=== PATIENT | male | born 1985 | race Caucasian/White ===

== ENCOUNTER 2023-02-12 11:34 | Emergency (ER) | payer BC ==
--- NOTE | 2023-02-12 12:13 | EDPHYS ---
Physician Documentation [facility] Name: Harrison Pedroza Age: 37 yrs Sex: Male : 1985 Arrival Date: 02/12/2023 Time: 11:34 Bed 14 Private MD: ED Physician Tru Davalos HPI: 02/12 12:08 This 37 yrs old Male presents to ER via Ambulatory with complaints of Foot Injury. sp3 12:08 37-year-old male with no past medical history presents with right plantar pain sp3 secondary to stepping on an oyster bed. Multiple superficial lacerations are present. No other injuries. No significant bleeding, foreign body sensation, proximal injury, injury other than the plantar surface review of systems otherwise negative.. Historical: - Allergies: 11:56 No Known Allergies; iw - Home Meds: 11:56 None [Active]; iw - PMHx: 11:56 None; iw - Immunization history:: Last tetanus immunization: < 5 years ago. - Social history:: Smoking status: Patient denies any tobacco usage or history of. ROS: 12:10 Constitutional: Negative for fever, chills, and weight loss, Eyes: Negative for injury, sp3 pain, redness, and discharge, ENT: Negative for injury, pain, and discharge, Neck: Negative for injury, pain, and swelling, Cardiovascular: Negative for chest pain, palpitations, and edema, Respiratory: Negative for shortness of breath, cough, wheezing, and pleuritic chest pain, Abdomen/GI: Negative for abdominal pain, nausea, vomiting, diarrhea, and constipation, Back: Negative for injury and pain, Skin: Negative for injury, rash, and discoloration, Neuro: Negative for headache, weakness, numbness, tingling, and seizure, Psych: Negative for depression, anxiety, suicide ideation, homicidal ideation, and hallucinations, Allergy/Immunology: Negative for hives, rash, and allergies, Endocrine: Negative for neck swelling, polydipsia, polyuria, polyphagia, and marked weight changes. 12:10 All other systems are negative. Exam: 12:10 Constitutional: This is a well developed, well nourished patient who is awake, alert, sp3 and in no acute distress. Neuro: Awake and alert, GCS 15, oriented to person, place, time, and situation. Cranial nerves II-XII grossly intact. Motor strength 5/5 in all extremities. Sensory grossly intact. Cerebellar exam normal. Normal gait. 12:10 Musculoskeletal/extremity: Multiple superficial plantar lacerations none greater than 1 cm are present. Approximately 4-5 are the 1 cm length the remainder are extremely superficial and shorter than that. No significant bleeding noted. No foreign body palpated. No significant bleeding noted. Dorsalis pedis pulses normal and no proximal injury whatsoever.. Vital Signs: 11:55 BP 111 / 57; Pulse 59; Resp 16; Temp 98.1; Pulse Ox 98% on R/A; Weight 68.04 kg; Height iw 5 ft. 6 in. ; 12:17 BP 120 / 96; Pulse 57; Resp 17; Pulse Ox 100% on R/A; me1 11:55 Body Mass Index 24.21 (68.04 kg, 167.64 cm) iw MDM: 12:01 Patient medically screened. sp3 12:11 Data reviewed: vital signs, nurses notes. ED course: 37-year-old male with right sp3 plantar foot injury secondary to oyster bed. Although technically not a marine envenomation, we will still place patient on Levaquin as opposed to standard gram-positive coverage. Patient declined x-ray of the foot to assess for foreign body stating he does not think that there is anything there. I told him he may return at any time if he changes his mind or he gets worse. Wounds will be cleaned, irrigated and dressed by nursing staff we will DC him home after that on Levaquin p.o. Follow-up with his PCP.. Administered Medications: No medications were administered Disposition Summary: 02/12/23 12:12 Discharge Ordered Location: Home sp3 Condition: Stable sp3 Diagnosis - Plantar lacerations, marine injury sp3 Followup: sp3 - With: Private Physician - When: Upon discharge from the Emergency Department - Reason: Continuance of care Discharge Instructions: - Discharge Summary Sheet sp3 - Marine Life Injury sp3 Forms: - Medication Reconciliation Form sp3 - Thank You Letter sp3 - Antibiotic Education sp3 - Prescription Opioid Use sp3 - Patient Portal Instructions sp3 - Leadership Thank You Letter sp3 Prescriptions: - levofloxacin 500 mg Oral Tablet - take 1 tablet by ORAL route once daily for 7 days; 7 tablet; Refills: 0, sp3 Product Selection Permitted Signatures: Becky Odell, OSORIO RN Tru Hernandez, MD sp3
--- NOTE | 2023-02-12 12:13 | ER ---
Nurse's Notes [facility] Name: Harrison Pedroza Age: 37 yrs Sex: Male : 1985 Arrival Date: 02/12/2023 Time: 11:34 Bed 14 Private MD: Diagnosis: Plantar lacerations, marine injury Presentation: 02/12 11:55 Chief complaint: Patient states: cut his right foot on some oyster reef. Coronavirus iw screen: At this time, the client does not indicate any symptoms associated with coronavirus-19. Risk Assessment: Do you want to hurt yourself or someone else? Patient reports no desire to harm self or others. Onset of symptoms was February 12, 2023. 11:55 Method Of Arrival: Ambulatory iw 11:55 Acuity: ROMERO 4 iw 11:56 Ebola Screen: Patient negative for fever greater than or equal to 101.5 degrees iw Fahrenheit, and additional compatible Ebola Virus Disease symptoms Patient denies exposure to infectious person. Patient denies travel to an Ebola-affected area in the 21 days before illness onset. No symptoms or risks identified at this time. Initial Sepsis Screen: Does the patient meet any 2 criteria? No. Patient's initial sepsis screen is negative. Does the patient have a suspected source of infection? No. Patient's initial sepsis screen is negative. Historical: - Allergies: 11:56 No Known Allergies; iw - Home Meds: 11:56 None [Active]; iw - PMHx: 11:56 None; iw - Immunization history:: Last tetanus immunization: < 5 years ago. - Social history:: Smoking status: Patient denies any tobacco usage or history of. Screenin:12 [facility] ED Fall Risk Assessment (Adult) History of falling in the last 3 months, me1 including since admission No falls in past 3 months (0 pts) Confusion or Disorientation No (0 pts) Intoxicated or Sedated No (0 pts) Impaired Gait No (0 pts) Mobility Assist Device Used No (0 pt) Altered Elimination No (0 pt) Score/Fall Risk Level 0 - 2 = Low Risk. Abuse screen: Denies threats or abuse. Nutritional screening: No deficits noted. Tuberculosis screening: No symptoms or risk factors identified. Assessment: 12:12 General: Appears uncomfortable, Behavior is calm, cooperative, appropriate for age, me1 Reports cutting his right foot on some oyster reef. Denies fever, chills. Pain: Complains of pain in arch of right foot Pain does not radiate. Pain currently is 4 out of 10 on a pain scale. Quality of pain is described as stinging, Pain began suddenly, Is continuous. Neuro: Level of Consciousness is awake, alert, obeys commands, Oriented to person, place, time, situation, Appropriate for age. Cardiovascular: Capillary refill < 3 seconds Patient's skin is warm and dry. Respiratory: Airway is patent Respiratory effort is even, unlabored, Respiratory pattern is regular, symmetrical. Derm: Wound noted arch of right foot Wound is laceration x 2. Musculoskeletal: No deficits noted. Vital Signs: 11:55 BP 111 / 57; Pulse 59; Resp 16; Temp 98.1; Pulse Ox 98% on R/A; Weight 68.04 kg; Height iw 5 ft. 6 in. ; 12:17 BP 120 / 96; Pulse 57; Resp 17; Pulse Ox 100% on R/A; me1 11:55 Body Mass Index 24.21 (68.04 kg, 167.64 cm) ED Course: 11:36 Patient arrived in ED. ts1 11:38 Tru Davalos MD is Attending Physician. sp3 11:56 Triage completed. iw 11:56 Arm band placed on. iw 11:58 Maria Luisa Xiong, OSORIO is Primary Nurse. me1 12:12 Patient has correct armband on for positive identification. Bed in low position. Call me1 light in reach. Provided Education on: POC and wound care. Verbalized understanding.. 12:12 No provider procedures requiring assistance completed. Patient did not have IV access me1 during this emergency room visit. Administered Medications: No medications were administered Medication: 12:12 VIS not applicable for this client. me1 Outcome: 12:12 Discharge ordered by . sp3 12:30 Discharged to home ambulatory, with significant other. me1 12:30 Condition: stable 12:30 Discharge instructions given to patient, significant other, Instructed on discharge instructions, follow up and referral plans. medication usage, Demonstrated understanding of instructions, follow-up care, medications, Prescriptions given X 1. 12:30 Patient left the ED. me1 Signatures: Becky Odell RN RN Tru Davalos MD MD sp3 Kassie Wild PAS PAS ts1 Maria Luisa Xiong, RN RN me1 Corrections: (The following items were deleted from the chart) 11:57 11:55 Resp 16bpm; Pulse Ox 98% RA; Temp 98.1F; 68.04 kg; Height 5 ft. 6 in.; BMI: 24.2; iw iw
[2023-02-12 12:39] VITALS: TEMP 98.1
[2023-02-12 12:40] VITALS: BP 120/96; O2SAT 100
== END 2023-02-12 12:30 | disposition home or self-care (01) ==
LOC: ER 11:34
DX: S91.311A Laceration without foreign body, right foot, initial encounter (principal); W26.8XXA Contact with other sharp object(s), not elsewhere classified, initial encounter
CPT/HCPCS: 99283